=== PATIENT | male | born 1970 | race Caucasian/White ===

== ENCOUNTER 2016-09-30 09:07 | Emergency (ER) | payer OTHER ==
[~2016-09-30] VITALS: Ht 177.8 cm; Wt 95.3 kg
--- NOTE | 2016-09-30 09:07 | NUR ---
Patient BIBA and taken to bed 02 via gurney per EMS.
[2016-09-30 09:10] VITALS: BP 181/127
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
--- NOTE | 2016-09-30 09:26 | NUR ---
Dr. Holly evaluating patient at bedside.
--- NOTE | 2016-09-30 09:47 | NUR ---
Patient discharged with v/s stable. Written and verbal after care instructions given and explained. Patient alert, oriented and verbalized understanding of instructions. Ambulatory with steady gait. All questions addressed prior to discharge. ID band removed. Patient advised to follow up with PMD.Opportunity to ask questions provided and answered.ADVISED PT TO REFRAIN FROM STRENOUS ACTIVITIES UNTIL PAIN SUBSIDE AND PT AGREED W/ IT.
[2016-09-30 09:50] VITALS: BP 158/95
== END 2016-09-30 09:47 | disposition home or self-care (01) ==
LOC: MED 09:18
DX: S16.1XXA Strain of muscle, fascia and tendon at neck level, initial encounter (principal); S20.212A Contusion of left front wall of thorax, initial encounter; S00.93XA Contusion of unspecified part of head, initial encounter; I10 Essential (primary) hypertension; V43.92XA Unspecified car occupant injured in collision with other type car in traffic accident, initial encounter; Y92.411 Interstate highway as the place of occurrence of the external cause; Y93.89 Activity, other specified; Y99.8 Other external cause status